=== PATIENT | female | born 1950 | race Caucasian/White ===

== ENCOUNTER → 2020-11-25 | Outpatient (CLI) | payer MEDICARE ==
[~2020-11-25] MED LIST: ATORVASTATIN CA80 MG PO; GLUCOPHAGE 500500 MG PO; INCRUSE ELLI62.5 MCG INH; LO-DOSE ASPIRIN81 MG PO; METOPROLOL SUCC25 MG PO; PLAVIX 75 MG TA75 MG PO; PROTONIX 40 MG40 M1 PO; SYMBICORT 160-1 INHA INH; ULTRAM50 MG PO; VITAMIN D31250 MCG PO; WELLBUTRIN SR100 MG PO
== END ==
LOC: CT 11-12 14:30
DX: Z87.891 Personal history of nicotine dependence (principal); K44.9 Diaphragmatic hernia without obstruction or gangrene; R91.8 Other nonspecific abnormal finding of lung field
CPT/HCPCS: 71271